=== PATIENT | female | born 1975 | race Caucasian/White ===

== ENCOUNTER 2019-02-20 12:53 | Emergency (ER) | payer MEDICAID ==
[~2019-02-20] VITALS: Ht 167.6 cm; Wt 104.3 kg
--- NOTE | 2019-02-20 12:56 | NUR ---
Patient biba taken to bed 5
--- NOTE | 2019-02-20 13:30 | NUR ---
PT BIB EMS WITH C/O ALTERED LEVEL OF CONSCIOUSNESS; WHEN THEY ARRIVED TO THE SCENE PT WAS SITTING IN TOILET; REPORTED BEING CONSTIPATED FOR SEVERAL DAYS AND TOOK APPROX 6 SPOONS OF [place]. PT NOTED VERY ANXIOUS. REPORTS BEING OFF PSYCH MEDS FOR 2 WEEKS. MEDHX:BIPOLAR, DEPRESSION AND ANXIETY ALLERGY: BENADRYL RX: ABILIFY, PROZAC, ATIVAN
--- NOTE | 2019-02-20 14:00 | NUR ---
CONTACTED RADHAAIR SIMMONS AND SPOKE TO DISPATCH AND PATIENT DID NOT MEET CRITERIA FOR 5150 SO NO OFFICER WILL BE FOLLOW UP WITH PATIENT. DR. WOODS MADE AWARE.
--- NOTE | 2019-02-20 14:14 | NUR ---
CREATIVE STRATEGIST [place] AT BEDSIDE TO SPEAK WITH PATIENT ABOUT NOT BEING ON HER MEDICATIONS FOR THE PAST [address] PER ORDER FROM [address] WOODS.
--- NOTE | 2019-02-20 14:21 | NUR ---
Kitchen Aide Note: I was informed by SHAR Cardona MD would like a social and human services assistant consult due to patient not taking psych medication. I met with patient at bedside. Per patient, she lives at home with her father Tico Stevenson and plans to return home upon discharge. She stated she is unsure who can assist her with transportation upon discharge. She told me her pcp is Danny Murillo and her psychiatrist is . She reported she is taking medication for anxiety and bipolar. She thinks her [employer] coverage is no longer active. Per Susan from Admitting Dept (Emergency Room), patient's [employer] coverage is not active. She stated she will provide patient with instructions on how to follow up with [employer]. I informed SHAR Cardona of above information.
[2019-02-20 14:34] LABS: BASOPHILS # (AUTO) 0.1 K/uL (0.00-0.22); BASOPHILS % (AUTO) 0.4 % (0.0-2.0); EOSINOPHILS # (AUTO) 0.1 K/uL (0-0.4); EOSINOPHILS % (AUTO) 0.3 % (0.0-4.0); HEMOGLOBIN 12.4 g/dL (12.0-16.0); LYMPHOCYTES # (AUTO) 1.1 K/uL (2.5-16.5); LYMPHOCYTES % (AUTO) 5.2 % (20.5-51.1); MEAN CORPUSCULAR HEMOGLOBIN 27 pg (27-31); MEAN CORPUSCULAR HGB CONC 33 g/dL (33-37); MEAN CORPUSCULAR VOLUME 82.8 fL (80-94); MONOCYTES # (AUTO) 1.4 K/uL (0.8-1.0); MONOCYTES % (AUTO) 7.1 % (1.7-9.3); NEUTROPHILS # (AUTO) 17.8 K/uL (1.8-7.7); PLATELET COUNT (AUTO) 382 K/uL (140-450); RED BLOOD CELL COUNT(AUTO) 4.58 MIL/uL (4.20-5.40); RED CELL DISTRIBUTION WIDTH 15.6 % (11.6-13.7); WHITE BLOOD COUNT (AUTO) 20.5 K/uL (4.8-10.8)
[2019-02-20 14:50] LABS: ALBUMIN 3.7 g/dL (3.4-5.0); ANION GAP 12.9 (8-16); CREATININE 1.9 mg/dL (0.6-1.3); TOTAL BILIRUBIN 0.6 mg/dL (0.0-1.0)
[2019-02-20 14:55] LABS: POTASSIUM 2.9 mmol/L (3.5-5.1)
[2019-02-20] MEDS ORDERED: POTASSIUM CHLORIDE 10 MEQ TABER PO ONE (15:20)
--- NOTE | 2019-02-20 15:30 | NUR ---
ENCOURAGED PT TO PROVIDE UA;PT UNABLE TO PROVIDE URINE SAMPLE AT THIS TIME.
--- NOTE | 2019-02-20 15:44 | NUR ---
PT RESTING COMFORTABLY IN BED;DENIES ANY PAIN. VSS.
[2019-02-20 17:48] LABS: APPEARANCE,URINE CLEAR (CLEAR); BILIRUBIN,URINE NEGATIVE (NEGATIVE); BLOOD, URINE NEGATIVE (NEGATIVE); COLOR,URINE YELLOW (YELLOW); LEUKOCYTE ESTERASE ,URINE NEGATIVE (NEGATIVE); NITRITE, URINE NEGATIVE (NEGATIVE); PH,URINE >=9.0 (5.0-9.0); UGLUCOSE NEGATIVE (NEGATIVE)
[2019-02-20 18:05] LABS: BARBITURATE, URINE NEG. ng/ml (NEG <=200); BENZODIAZEPINE, URINE NEG. ng/mL (NEG <=200); CANNABINOID, URINE NEG. ng/mL (NEG <=50); COCAINE, URINE NEG. ng/mL (NEG <=300); OPIATE, URINE NEG. ng/mL (NEG <=2000); PHENCYCLIDINE SCREEN,URINE POS. ng/mL (NEG <=25)
--- NOTE | 2019-02-20 18:56 | NUR ---
Patient discharged with v/s stable. Written and verbal after care instructions given and explained. All questions addressed prior to discharge BY MD. Advised to follow up with PMD. PT LEFT WITH OUT DISCHARGE INSTRUCTIONS.
[2019-02-20 18:57] VITALS: BP 96/61
== END 2019-02-20 18:56 | disposition home or self-care (01) ==
LOC: MED 12:53
DX: S50.12XA Contusion of left forearm, initial encounter (principal); K59.00 Constipation, unspecified; E87.6 Hypokalemia; R19.7 Diarrhea, unspecified; F31.9 Bipolar disorder, unspecified; F17.210 Nicotine dependence, cigarettes, uncomplicated; Z90.49 Acquired absence of other specified parts of digestive tract; Z88.8 Allergy status to other drugs, medicaments and biological substances; W50.0XXA Accidental hit or strike by another person, initial encounter; Y93.89 Activity, other specified; Y92.89 Other specified places as the place of occurrence of the external cause; Y99.8 Other external cause status
CPT/HCPCS: 36415; 80053; 80305; 81003; 81025; 83690; 84703; 85025; 99283

== ENCOUNTER 2019-08-14 13:58 | Emergency (ER) | payer SELFPAY ==
[~2019-08-14] VITALS: Ht 167.6 cm; Wt 108.9 kg
[2019-08-14 14:12] VITALS: BP 137/67
--- NOTE | 2019-08-14 14:38 | NUR ---
PT REFUSES TO GET OUT OF BED TO GIVE URINE
--- NOTE | 2019-08-14 14:44 | NUR ---
43 Y/F PRESENTS TO ED FOR " PANICK ATTACK" X 1 DAY, PT WENT TO [facility] BUT DID NOT WANT TO WAIT. PT REPORTS SHE HAS NOT TAKEN HER MEDICATION ( UNABLE TO RECALL NAMES "MOOD STABILIZERS, ANXIETY RX") SINCE . PT ALSO COMPLAINS OF COUGH AND ST X 3 DAY. REPORTS PRODUCTIVE COUGH WITH GREEN PHLEGM. DENIES FEVER, CHILLS, BODY ACHE OR NASAL CONGESTION. LUNGS CLEAR. PT A & O X 4. PT CRYING IN BED. DENIES SI. MEDICATIONS- DENIES PMH- BIPOLAR, ANXIETY ALLERGIC- BENADRYL
[2019-08-14] MEDS ORDERED: ALUMINUM HYD/MAG/SIMETHICONE 30 ML, DICYCLOMINE HCL LIQUID 20 MG, LIDOCAINE VISCOUS 2% ... PO ONE ×3 (15:15)
[2019-08-14] MEDS ORDERED: DEXAMETHASONE 4 MG/ML VIAL PO ONE (15:15)
[2019-08-14] MEDS ORDERED: ALUMINUM HYD/MAG/SIMETHICONE 30 ML UDC ONE (15:20)
[2019-08-14] MEDS ORDERED: LIDOCAINE VISCOUS 2% 20 ML UDC ONE (15:20)
[2019-08-14] MEDS ORDERED: DICYCLOMINE HCL LIQUID 10 MG/5 ML UDC ONE (15:20)
--- NOTE | 2019-08-14 15:27 | NUR ---
PT SITTING UPRIGHT IN BED ON CELL PHONE, LAUGHING. DENIES PAIN. STATES NO SI AT THIS TIME. WILL CONTINUE TO MONITOR
--- NOTE | 2019-08-14 15:59 | NUR ---
NADR, DENIES PAIN
[2019-08-14 16:00] VITALS: BP 127/73
--- NOTE | 2019-08-14 16:00 | NUR ---
Patient discharged with v/s stable. Written and verbal after care instructions given and explained REGARDING SORE THROAT AND UPPER RESP INFECTION. Patient alert, oriented and verbalized understanding of instructions. Ambulatory with steady gait. All questions addressed prior to discharge. ID band removed. Patient advised to follow up with PMD. Rx of TYLENOL, CEPACOL, ROBITUSSIN given. Patient educated on indication of medication including possible reaction and side effects. Opportunity to ask questions provided and answered.
== END 2019-08-14 16:00 | disposition home or self-care (01) ==
LOC: MED 13:58
DX: J02.9 Acute pharyngitis, unspecified (principal); F31.9 Bipolar disorder, unspecified; Z88.8 Allergy status to other drugs, medicaments and biological substances
CPT/HCPCS: 99283; J1100